=== PATIENT | male | born 1990 | race Caucasian/White ===

== ENCOUNTER 2018-01-28 18:08 | Emergency (ER) | payer OTHER ==
[2018-01-28 19:06] LABS: ABS Basophils 0 10^3/ul (0-0.2); ABS Eosinophils 0.1 10^3/ul (0-0.6); ABS Lymphocytes 1.5 10^3/ul (1.0-4.8); ABS Monocytes 0.6 10^3/ul (0-0.8); ABS Neutrophils 5.2 10^3/ul (1.5-7.7); ABS Nucleated RBC 0 10^3/ul; Eosinophil % 1.3 % (0-6); Hematocrit 43 % (42-52); Hemoglobin 14.9 g/dl (14.0-18.0); Lymphocyte % 20.1 % (25-47); Mean Corpuscular HGB Conc 35 g/dl (31-36); Mean Corpuscular Hemoglobin 32 pg (27-31); Mean Corpuscular Volume 91 fL (80-94); Mean Platelet Volume 10.3 um3 (7.4-10.4); Nucleated Red Blood Cells % 0.1; Platelet Count 200 10^3/ul (150-450); Red Blood Count 4.71 10^6/ul (4.0-5.4); Red Cell Distribution Width 13 % (10.5-15); White Blood Count 7.4 10^3/ul (3.5-10.8)
[2018-01-28 19:15] LABS: EGFR Non-African American 108.4 (>60)
--- NOTE | 2018-01-28 19:37 | RAD ---
Indication: Bilateral testicular pain. Comparison: No relevant prior exams available on the [facility] PACS for comparison. Technique: Scrotal ultrasound. Report: 4.6 x 2.8 x 3.1 cm RIGHT testicle. 5.0 x 2.5 x 3.1 cm LEFT testicle. Normal bilateral testicular echotexture and symmetric normal range vascularity. No intratesticular lesions evident. Unremarkable 1.1 x 1.1 cm RIGHT epididymis head and 0.9 x 1.4 cm LEFT epididymis head with normal range vascularity. Small RIGHT hydrocele. Negative for LEFT hydrocele. Negative for varicoceles. IMPRESSION: 1. No evidence for presence of an intratesticular lesion, testicular torsion, or epididymoorchitis. 2. Small RIGHT hydrocele.
[2018-01-28] MEDS ORDERED: Ibuprofen TAB* 600 MG PO ONE (20:13)
--- NOTE | 2018-01-28 20:24 | ED ---
GI/ HPI - HPI Summary HPI Summary: Complains of intermittent testicle pain 1 week. Pain is worse with sitting, decreases with standing or lying down. Denies redness, swelling, penile discharge, abdominal pain, fever, N/V, trauma. Also complains of Chronic intermittent hematuria, chronic intermittment low back pain, chronic burning with urination 1 year. Denies active hematuria, low back pain or burning with urination currently. States multiple evaluations of those symptoms without formal diagnosis, but denies ever having consulted with urology. Medical history is fatty liver, HDL. - History of Current Complaint Chief Complaint: EDUrogenitalProblems Time Seen by Provider: 01/28/18 18:30 Stated Complaint: TESTICULAR PAIN Hx Obtained From: Patient Pain Intensity: 3 - Allergy/Home Medications Allergies/Adverse Reactions: Allergies Allergy/AdvReac Type Severity Reaction Status Date / Time No Known Allergies Allergy Verified 01/28/18 18:15 Home Medications: Home Medications Atorvastatin* [Lipitor*] 20 mg PO DAILY 01/28/18 [History Confirmed 01/28/18] PMH/Surg Hx/FS Hx/Imm Hx Infectious Disease History: No Infectious Disease History: Denies: Traveled Outside the [place] in Last 30 Days - Social History Alcohol Use: Occasionally Substance Use Type: Reports: Marijuana Smoking Status (MU): Never Smoked Tobacco Review of Systems Constitutional: Negative Eyes: Negative ENT: Negative Cardiovascular: Negative Respiratory: Negative Gastrointestinal: Negative Positive: burning, hematuria Positive: Other Skin: Negative Neurological: Negative Psychological: Normal All Other Systems Reviewed And Are Negative: Yes Physical Exam - Summary Physical Exam Summary: Mild redness to the scrotum, no swelling, extra warmth, lesion, mass, abscess, purulent discharge noted. Normal lie to both testicles. Testicles tender to palpation. Physical exam of penis appears normal. No discharge, swelling, erythema noted. Triage Information Reviewed: Yes Vital Signs On Initial Exam: Initial Vitals Temp Pulse Resp BP Pulse Ox 97.1 F 76 16 128/74 97 01/28/18 18:09 01/28/18 18:09 01/28/18 18:09 01/28/18 18:09 01/28/18 18:09 Vital Signs Reviewed: Yes Appearance: Positive: Well-Appearing Skin: Positive: Warm Head/Face: Positive: Normal Head/Face Inspection Eyes: Positive: Normal Neck: Positive: Supple Respiratory/Lung Sounds: Positive: Clear to Auscultation Cardiovascular: Positive: Normal Abdomen Description: Positive: Nontender Male Genital Exam: Positive: Erythema, Scrotum Tenderness (R), Scrotum Tenderness (L), Testicular Tenderness (R), Testicular Tenderness (L). Negative : Bleeding, Epididymal Tenderness, Hernia Mass, Inguinal Tenderness, Lesions, Urethral Discharge Musculoskeletal: Positive: Normal Neurological: Positive: Normal Psychiatric: Positive: Normal AVPU Assessment: Alert - [place] Coma Scale Best Eye Response: 4 - Spontaneous Best Motor Response: 6 - Obeys Commands Best Verbal Response: 5 - Oriented Coma Scale Total: 15 Diagnostics - Vital Signs Vital Signs Temp Pulse Resp BP Pulse Ox 01/28/18 19:08 83 120/75 96 01/28/18 19:00 85 97 01/28/18 18:38 91 124/86 98 01/28/18 18:37 95 97 01/28/18 18:09 97.1 F 76 16 128/74 97 - Laboratory Lab Results: Lab Results 01/28/18 01/28/18 01/28/18 Range/Units 18:48 18:48 18:48 WBC 7.4 (3.5-10.8) 10^3/ul RBC 4.71 (4.0-5.4) 10^6/ul Hgb 14.9 (14.0-18.0) g/dl Hct 43 (42-52) % MCV 91 (80-94) fL MCH 32 H (27-31) pg MCHC 35 (31-36) g/dl RDW 13 (10.5-15) % Plt Count 200 (150-450) 10^3/ul MPV 10.3 (7.4-10.4) um3 Neut % (Auto) 69.8 (38-83) % Lymph % (Auto) 20.1 L (25-47) % [place] % (Auto) 8.5 H (0-7) % Eos % (Auto) 1.3 (0-6) % Baso % (Auto) 0.3 (0-2) % Absolute Neuts (auto) 5.2 (1.5-7.7) 10^3/ul Absolute Lymphs (auto) 1.5 (1.0-4.8) 10^3/ul Absolute Monos (auto) 0.6 (0-0.8) 10^3/ul Absolute Eos (auto) 0.1 (0-0.6) 10^3/ul Absolute Basos (auto) 0 (0-0.2) 10^3/ul Absolute Nucleated RBC 0 10^3/ul Nucleated RBC % 0.1 Sodium 139 (139-145) mmol/L Potassium 3.9 (3.5-5.0) mmol/L Chloride 107 (101-111) mmol/L Carbon Dioxide 24 (22-32) mmol/L Anion Gap 8 (2-11) mmol/L BUN 12 (6-24) mg/dL Creatinine 0.86 (0.67-1.17) mg/dL Est GFR ( Amer) 139.3 (>60) Est GFR (Non-Af Amer) 108.4 (>60) BUN/Creatinine Ratio 14.0 (8-20) Glucose 109 H (70-100) mg/dL Lactic Acid 0.7 (0.5-2.0) mmol/L Calcium 9.8 (8.6-10.3) mg/dL Total Bilirubin 0.50 (0.2-1.0) mg/dL AST 38 (13-39) U/L ALT 74 H (7-52) U/L Alkaline Phosphatase 116 H (34-104) U/L C-Reactive Protein 1.52 (< 5.00) mg/L Total Protein 7.6 (6.4-8.9) g/dL Albumin 4.5 (3.2-5.2) g/dL Globulin 3.1 (2-4) g/dL Albumin/Globulin Ratio 1.5 (1-3) Urine Color Urine Appearance Urine pH Ur Specific [place] Urine Protein Urine Ketones Urine Blood Urine Nitrate Urine Bilirubin Urine Urobilinogen Ur Leukocyte Esterase Urine WBC (Auto) (Absent) Urine RBC (Auto) (Absent) Ur Squamous Epith Cells (Absent) Urine Bacteria (Absent) Urine Glucose Urine Ascorbic Acid 01/28/18 Range/Units 19:54 WBC (3.5-10.8) 10^3/ul RBC (4.0-5.4) 10^6/ul Hgb (14.0-18.0) g/dl Hct (42-52) % MCV (80-94) fL MCH (27-31) pg MCHC (31-36) g/dl RDW (10.5-15) % Plt Count (150-450) 10^3/ul MPV (7.4-10.4) um3 Neut % (Auto) (38-83) % Lymph % (Auto) (25-47) % [place] % (Auto) (0-7) % Eos % (Auto) (0-6) % Baso % (Auto) (0-2) % Absolute Neuts (auto) (1.5-7.7) 10^3/ul Absolute Lymphs (auto) (1.0-4.8) 10^3/ul Absolute Monos (auto) (0-0.8) 10^3/ul Absolute Eos (auto) (0-0.6) 10^3/ul Absolute Basos (auto) (0-0.2) 10^3/ul Absolute Nucleated RBC 10^3/ul Nucleated RBC % Sodium (139-145) mmol/L Potassium (3.5-5.0) mmol/L Chloride (101-111) mmol/L Carbon Dioxide (22-32) mmol/L Anion Gap (2-11) mmol/L BUN (6-24) mg/dL Creatinine (0.67-1.17) mg/dL Est GFR ( Amer) (>60) Est GFR (Non-Af Amer) (>60) BUN/Creatinine Ratio (8-20) Glucose (70-100) mg/dL Lactic Acid (0.5-2.0) mmol/L Calcium (8.6-10.3) mg/dL Total Bilirubin (0.2-1.0) mg/dL AST (13-39) U/L ALT (7-52) U/L Alkaline Phosphatase (34-104) U/L C-Reactive Protein (< 5.00) mg/L Total Protein (6.4-8.9) g/dL Albumin (3.2-5.2) g/dL Globulin (2-4) g/dL Albumin/Globulin Ratio (1-3) Urine Color Pending Urine Appearance Pending Urine pH Pending Ur Specific [place] Pending Urine Protein Pending Urine Ketones Pending Urine Blood Pending Urine Nitrate Pending Urine Bilirubin Pending Urine Urobilinogen Pending Ur Leukocyte Esterase Pending Urine WBC (Auto) Trace(0-5/hpf) (Absent) Urine RBC (Auto) 1+(3-5/hpf) A (Absent) Ur Squamous Epith Cells Present A (Absent) Urine Bacteria Absent (Absent) Urine Glucose Pending Urine Ascorbic Acid Pending Result Diagrams: 01/28/18 18:48 01/28/18 18:48 Lab Statement: Any lab studies that have been ordered have been reviewed, and results considered in the medical decision making process. - Ultrasound No standard instances Ultrasound Interpretation: No Acute Changes - Negative for torsion, lesion, epididymitis Ultrasound Interpretation Completed By: Radiologist MELI Course/Dx - Course Course Of Treatment: Complains of intermittent testicle pain 1 week. Pain is worse with sitting, decreases with standing or lying down. Denies redness, swelling, penile discharge, abdominal pain, fever, N/V, trauma. Also complains of Chronic intermittent hematuria, chronic intermittment low back pain, chronic burning with urination 1 year. Denies active hematuria, low back pain or burning with urination currently. States multiple evaluations of those symptoms without formal diagnosis, but denies ever having consulted with urology. Medical history is fatty liver, HDL. Mild redness to the scrotum, no swelling, extra warmth, lesion, mass, abscess, purulent discharge noted. Normal lie to both testicles. Testicles tender to palpation. Physical exam of penis appears normal. No discharge, swelling, erythema noted. Vital signs within normal limits and stable. Imaging unremarkable. Labs unremarkable. 1+ RBCs in urine. Possible cellulitis of scrotum. Rx for Keflex. Recommend follow-up with urology for chronic intermittent hematuria/low back pain/burning with urination. - Diagnoses Provider Diagnoses: Cellulitis Discharge - Sign-Out/Discharge Documenting (check all that apply): Discharge/Admit/Transfer - Discharge Plan Condition: Stable Disposition: HOME Prescriptions: Cephalexin CAP* [Keflex CAP*] 500 mg PO TID 10 Days #30 cap Patient Education Materials: Cellulitis (ED) Referrals: [facility] [Outside] No Primary Care Phys,NOPCP [Primary Care Provider] - Chava Long MD [Medical Doctor] - Additional Instructions: Tylenol and/or ibuprofen for pain. Take antibiotics as directed. Follow-up with primary care. Return to the ED for any new or worsening symptoms - Billing Disposition and Condition Condition: STABLE Disposition: HOME
[2018-01-28] MEDS ORDERED: Cephalexin CAP* 500 MG PO ONE (20:25)
[2018-01-28 20:27] LABS: Urine Appearance Clear; Urine Blood Negative (Negative); Urine Color Yellow; Urine Ketones Negative (Negative); Urine Protein Negative (Negative); Urine Specific Gravity 1.021 (1.010-1.030); Urine Urobilinogen Negative (Negative)
[2018-01-28] MEDS ORDERED: Cephalexin CAP* 250 MG ONE (20:29)
[2018-01-28 21:00] VITALS: BP 138/69
== END 2018-01-28 20:59 | disposition home or self-care (01) ==
LOC: ED 18:08
DX: N49.2 Inflammatory disorders of scrotum (principal)
CPT/HCPCS: 36415; 76870; 80053; 81003; 83605; 85025; 86140; 87086; 87491; 87591; 99282; A9270-GY